=== PATIENT | female | born 1985 | race Two or more races ===

== ENCOUNTER 2018-12-31 06:32 | Inpatient (IN) | payer OTHER ==
[~2018-12-31] VITALS: Ht 172.7 cm; Wt 83.9 kg
[2018-12-31] MEDS ORDERED: PRENATAL TABLE1 EAC1 PO (08:23)
[2018-12-31] MEDS ORDERED: FOLIC ACID0.4 MG PO (08:23)
== END 2019-01-02 11:34 | disposition home or self-care (01) | DRG 807 ==
LOC: LDR 06:32 → OB/GYN 19:20
PROVIDERS: ADMIT Obstetrics & Gynecology
PROC: 10E0XZZ Delivery of Products of Conception, External Approach (ICD-10-PCS; principal; 2018-12-31)
PROC: 0UQGXZZ Repair Vagina, External Approach (ICD-10-PCS; 2018-12-31)
PROC: 10907ZC Drainage of Amniotic Fluid, Therapeutic from Products of Conception, Via Natural or Artificial Opening (ICD-10-PCS; 2018-12-31)
PROC: 3E033VJ Introduction of Other Hormone into Peripheral Vein, Percutaneous Approach (ICD-10-PCS; 2018-12-31)
PROC: 4A1HXCZ Monitoring of Products of Conception, Cardiac Rate, External Approach (ICD-10-PCS; 2018-12-31)
DX: O71.4 Obstetric high vaginal laceration alone (principal); Z37.0 Single live birth; Z3A.39 39 weeks gestation of pregnancy